=== PATIENT | female | born 1955 ===

== ENCOUNTER → 2017-04-30 | Outpatient (CLI) | payer OTHER | END | disposition home or self-care (01) | LOC: CFH 08:52 | PROVIDERS: ATTEND Otolaryngology | DX: J34.2 Deviated nasal septum (principal); J32.2 Chronic ethmoidal sinusitis | CPT/HCPCS: 70486 ==

== ENCOUNTER 2017-05-25 05:15 | Day surgery (SDC) | payer OTHER ==
[2017-05-21 12:57] VITALS: BP 152/80
[~2017-05-25] VITALS: Ht 170.2 cm; Wt 92.9 kg
[~2017-05-25 05:15] MED LIST: CETI-237 PO; FLUT9.9S NS; LATA2.5D3 EACHEYE; LISI-167 PO; MELO15TA24 PO; PREG200C PO; TIMO5SOL11 EACHEYE; TRAM50TA2 PO; lisinopril PO; lyrica PO
[2017-05-25] MEDS ORDERED: LACTATED RINGERS 1,000 ML IV SCH (05:55)
[2017-05-25] MEDS ORDERED: LIDOCAINE 1%, 2ML SQ PRN (06:00)
[2017-05-25] MEDS ORDERED: LIDOCAINE-MPF 1%, 2ML ONE (06:14)
[2017-05-25] MEDS ORDERED: MIDAZOLAM 1 MG/ML, 2ML ONE (06:46)
[2017-05-25] MEDS ORDERED: KETAMINE 10 MG/ML, 20ML ONE (06:46)
[2017-05-25] MEDS ORDERED: DEXAMETHASONE 4 MG/ML, 1ML ONE ×2 (06:47)
[2017-05-25] MEDS ORDERED: LIDOCAINE-MPF 2% ,5ML ONE ×2 (06:47)
[2017-05-25] MEDS ORDERED: SUCCINYLCHOLINE 20 MG/ML, 10ML ONE (06:47)
[2017-05-25] MEDS ORDERED: ONDANSETRON 2MG/ML, 2ML ONE (06:47)
[2017-05-25] MEDS ORDERED: ROCURONIUM 10 MG/ML,10ML ONE (06:47)
[2017-05-25] MEDS ORDERED: FENTANYL PF 100 MCG/2ML ONE ×2 (06:47→09:13)
[2017-05-25] MEDS ORDERED: EPINEPHRINE 1 MG/ML, 1ML ONE (07:06)
[2017-05-25] MEDS ORDERED: BACITRACIN ZINC OINT 500U/GM, 0.9 GM ONE (07:06)
[2017-05-25] MEDS ORDERED: LIDOCAINE 1%, 20ML ONE (07:06)
[2017-05-25] MEDS ORDERED: OXYMETAZOLINE NASAL SPRAY 0.05%, 15ML ONE (07:06)
[2017-05-25] MEDS ORDERED: BACITRACIN OINT 500U/GM, 15 GM ONE (07:07)
[2017-05-25] MEDS ORDERED: PROPOFOL 10 MG/ML, 20ML ONE (07:41)
[2017-05-25] MEDS ORDERED: GLYCOPYRROLATE 0.2MG/1ML, 5ML ONE (07:41)
[2017-05-25] MEDS ORDERED: NEOSTIGMINE 1 MG/ML, 10ML ONE (07:41)
[2017-05-25] MEDS ORDERED: CEFAZOLIN 1,000 MG ONE (07:41)
[2017-05-25] MEDS ORDERED: LIDOCAINE 1%, 20ML INFIL ONE (08:02)
[2017-05-25] MEDS ORDERED: EPINEPHRINE 1 MG/ML, 1ML INFIL ONE (08:03)
[2017-05-25] MEDS ORDERED: OXYMETAZOLINE NASAL SPRAY 0.05%, 15ML NAS ONE (08:04)
[2017-05-25] MEDS ORDERED: MUPIROCIN OINT 2%, 22GM TP ONE (08:06)
[2017-05-25] MEDS ORDERED: ALBUTEROL SULFATE 2.5 MG/3 ML NPPB PRN (08:30)
[2017-05-25] MEDS ORDERED: MIDAZOLAM 1 MG/ML, 2ML IV PRN (08:30)
[2017-05-25] MEDS ORDERED: PROMETHAZINE 25 MG/ML, 1ML IV PRN (08:30)
[2017-05-25] MEDS ORDERED: OXYcodone 5 MG/5 ML ORAL.SOL UDC PO PRN (08:30)
[2017-05-25] MEDS ORDERED: HYDROmorphone 1 MG/ML, 1ML IV PRN (08:30)
[2017-05-25] MEDS ORDERED: ACETAMINOPHEN 325 MG TABLET PO PRN (08:30)
[2017-05-25] MEDS ORDERED: ACETAMINOPHEN 650 MG/20.3 ML UDC ONE (08:58)
[2017-05-25] MEDS ORDERED: OXYcodone 5 MG/5 ML ORAL.SOL UDC ONE (08:58)
[2017-05-25] MEDS: FENTANYL PF 100 MCG/2ML IV PRN ×2 (09:17→09:29)
== END 2017-05-25 10:55 ==
LOC: OUT 05:15
PROVIDERS: ATTEND Otolaryngology
DX: J34.2 Deviated nasal septum (principal); J34.3 Hypertrophy of nasal turbinates; J34.89 Other specified disorders of nose and nasal sinuses; H40.9 Unspecified glaucoma; I10 Essential (primary) hypertension; E78.5 Hyperlipidemia, unspecified; E66.9 Obesity, unspecified; Z88.8 Allergy status to other drugs, medicaments and biological substances
CPT/HCPCS: 30140; 30520; J0171; J0330; J0690; J1100; J2250; J2405; J2704; J2710; J3010; J3490; J7120

== ENCOUNTER 2018-02-12 12:43 | Emergency (ER) | payer OTHER ==
[~2018-02-12] VITALS: Ht 170.2 cm; Wt 92.5 kg
[2018-02-12] MEDS ORDERED: SODIUM CHLORIDE FLUSH 10ML SYR IVF ONE (13:30)
[2018-02-12 13:50] LABS: BASOPHILS # (AUTO) 0.02 x10^3/uL (0-0.1); BASOPHILS % (AUTO) 0 % (0-1); EOSINOPHILS # (AUTO) 0.12 x10^3/uL (0-0.4); EOSINOPHILS % (AUTO) 2 % (1-7); LYMPHOCYTES # (AUTO) 3.58 x10^3/uL (1-3.4); LYMPHOCYTES % (AUTO) 44 % (22-44); MD NO; MEAN CORPUSCULAR HEMOGLOBIN 30.9 pg (27.0-34.8); MEAN CORPUSCULAR HGB CONC 34.5 g/dL (32.4-35.8); MEAN CORPUSCULAR VOLUME 89.7 fL (80-100); MEAN PLATELET VOLUME 9.5 fL (7.4-10.4); MONOCYTES # (AUTO) 0.48 x10^3/uL (0.2-0.8); MONOCYTES % (AUTO) 6 % (2-9); NEUTROPHILS # (AUTO) 3.95 x10^3/uL (1.8-6.8); NEUTROPHILS % (AUTO) 48 % (42-75); PLATELET COUNT 218 x10^3/uL (130-400); RED BLOOD COUNT 4.79 x10^6/uL (3.82-5.3); RED CELL DISTRIBUTION WIDTH 13.5 % (9.6-15.2)
[2018-02-12 13:58] LABS: ALBUMIN 3.4 g/dL (3.4-5.0); ANION GAP 5 mmol/L (5-15); CALCIUM 8.9 mg/dL (8.5-10.1); CHLORIDE 111 mmol/L (98-107); CREATININE 0.77 mg/dL (0.55-1.02)
[2018-02-12] MEDS ORDERED: OMNIPAQUE 350 MG/ML, 100ML BOTTLE ONE (14:20)
[2018-02-12 16:22] VITALS: BP 118/62
== END 2018-02-12 16:50 | disposition home or self-care (01) ==
LOC: ED 16:48
DX: E07.9 Disorder of thyroid, unspecified (principal); I10 Essential (primary) hypertension; Z88.3 Allergy status to other anti-infective agents
CPT/HCPCS: 36415; 70491; 80048; 82040; 85025; 99285; Q9967